=== PATIENT | female | born 1990 | race American Indian/Alaskan Native ===

== ENCOUNTER 2018-06-13 20:09 | Emergency (ER) | payer MEDICAID, OTHER ==
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
[2018-06-13 23:33] VITALS: BP 110/72
== END 2018-06-13 23:33 | disposition home or self-care (01) ==
LOC: ED 20:09
DX: S39.012A Strain of muscle, fascia and tendon of lower back, initial encounter (principal); V49.49XA Driver injured in collision with other motor vehicles in traffic accident, initial encounter; Y93.89 Activity, other specified; Y92.410 Unspecified street and highway as the place of occurrence of the external cause; Y99.8 Other external cause status
CPT/HCPCS: 72072